=== PATIENT | female | born 1930 | race Caucasian/White ===

== ENCOUNTER → 2017-03-12 | Outpatient (CLI) | payer OTHER ==
[2017-03-12 13:20] LABS: COMPLETE YES; EOS % 1.4 %; IG% 0.6 %; LYMPH % 25.2 %; LYMPH ABS # 1.58 K/uL (1.2-3.4); MEAN CELL VOLUME 97.2 fL (80-100); MEAN CORPUSCULAR HEMOGLOBIN 31.2 pg (25-34); MEAN CORPUSCULAR HGB CONC 32.1 g/dl (32-36); MEAN PLATELET VOLUME 11.5 fL (7.4-10.4); NEUT % 68.8 %; PLATELET COUNT 433 K/uL (130-400); RED BLOOD COUNT 3.91 M/uL (4.2-5.4); WHITE BLOOD COUNT 6.26 K/uL (4.8-10.8)
[2017-03-12 13:59] LABS: ALT/SGPT 18 U/L (12-78); AST/SGOT 15 U/L (15-37); BLOOD UREA NITROGEN 30 mg/dl (7-18); BUN/CREATININE RATIO 17.5 (10-20); CALCIUM 8.6 mg/dl (8.5-10.1); CARBON DIOXIDE 22 mmol/L (21-32); CHLORIDE 111 mmol/L (98-107); GLUCOSE 181 mg/dl (70-99); SODIUM 144 mmol/L (136-145)
[2017-03-12 14:00] LABS: ESTIMATED AVERAGE GLUCOSE 143 mg/dl; HA1C FLAG Normal (Normal)
[2017-03-12 14:10] LABS: ALB/GLOB RATIO 1.2 (0.9-2); ALKALINE PHOSPHATASE 100 U/L (45-117); CHOLESTEROL 112 mg/dl (0-200); CHOLESTEROL/HDL RATIO 3.2; HDL CHOLESTEROL 35 mg/dl; TRIGLYCERIDES 139 mg/dl (0-150); VERY LOW DENSITY LIPOPROT CALC 28 mg/dl
== END | disposition home or self-care (01) ==
LOC: C.LABSPEC 12:17
PROVIDERS: ATTEND Internal Medicine
DX: E11.65 Type 2 diabetes mellitus with hyperglycemia (principal); E78.5 Hyperlipidemia, unspecified; R53.83 Other fatigue; N18.9 Chronic kidney disease, unspecified

== ENCOUNTER → 2017-07-23 | Outpatient (CLI) | payer OTHER ==
[2017-07-23 15:26] LABS: BASO % 0.3 %; BASO ABS # 0.02 K/uL (0-0.2); COMPLETE YES; EOS % 1.9 %; HEMATOCRIT 37.3 % (37-47); LYMPH ABS # 2.27 K/uL (1.2-3.4); MEAN CELL VOLUME 96.6 fL (80-100); MEAN CORPUSCULAR HEMOGLOBIN 30.8 pg (25-34); MEAN CORPUSCULAR HGB CONC 31.9 g/dl (32-36); MEAN PLATELET VOLUME 10.3 fL (7.4-10.4); MONO % 5.2 %; NEUT % 62.6 %; PLATELET COUNT 454 K/uL (130-400); RED BLOOD COUNT 3.86 M/uL (4.2-5.4); WHITE BLOOD COUNT 7.84 K/uL (4.8-10.8)
[2017-07-23 16:00] LABS: ALT/SGPT 20 U/L (12-78); BLOOD UREA NITROGEN 37 mg/dl (7-18); BUN/CREATININE RATIO 20.4 (10-20); CALCIUM 8.7 mg/dl (8.5-10.1); CARBON DIOXIDE 21 mmol/L (21-32); CHLORIDE 112 mmol/L (98-107); GLUCOSE 117 mg/dl (70-99); SODIUM 142 mmol/L (136-145)
[2017-07-23 16:03] LABS: ALB/GLOB RATIO 1.1 (0.9-2); ALKALINE PHOSPHATASE 83 U/L (45-117); AST/SGOT 22 U/L (15-37)
[2017-07-24 07:31] LABS: ESTIMATED AVERAGE GLUCOSE 131 mg/dl; HA1C FLAG Normal (Normal)
== END | disposition home or self-care (01) ==
LOC: C.LABSPEC 14:36
PROVIDERS: ATTEND Internal Medicine
DX: I12.9 Hypertensive chronic kidney disease with stage 1 through stage 4 chronic kidney disease, or unspecified chronic kidney disease (principal); E11.22 Type 2 diabetes mellitus with diabetic chronic kidney disease; N18.9 Chronic kidney disease, unspecified; R42 Dizziness and giddiness

== ENCOUNTER → 2017-11-26 | Outpatient (CLI) | payer OTHER ==
[2017-11-26 14:52] LABS: BASO % 0.4 %; BASO ABS # 0.03 K/uL (0-0.2); EOS % 2.7 %; EOS ABS # 0.19 K/uL (0-0.5); HEMATOCRIT 43.6 % (37-47); HEMOGLOBIN 13.6 g/dL (12.0-16.0); LYMPH ABS # 2.19 K/uL (1.2-3.4); MEAN CELL VOLUME 96.7 fL (80-100); MEAN CORPUSCULAR HEMOGLOBIN 30.2 pg (25-34); MEAN CORPUSCULAR HGB CONC 31.2 g/dl (32-36); MEAN PLATELET VOLUME 11.3 fL (7.4-10.4); MONO % 4.1 %; MONO ABS # 0.29 K/uL (0.11-0.59); NEUT % 60.8 %; NEUT ABS # 4.35 K/uL (1.4-6.5); PLATELET COUNT 389 K/uL (130-400); RED CELL DISTRIBUTION WIDTH CV 20.2 % (11.5-14.5); RED CELL DISTRIBUTION WIDTH SD 71.2 fL (36.4-46.3); WHITE BLOOD COUNT 7.15 K/uL (4.8-10.8)
[2017-11-26 15:01] LABS: ALBUMIN 3.3 gm/dl (3.4-5.0); ALT/SGPT 20 U/L (12-78); BLOOD UREA NITROGEN 44 mg/dl (7-18); CALCIUM 8.8 mg/dl (8.5-10.1); CARBON DIOXIDE 23 mmol/L (21-32); CHOLESTEROL 101 mg/dl (0-200); CREATININE 1.83 mg/dl (0.60-1.20); GLUCOSE 115 mg/dl (70-99); POTASSIUM 4.9 mmol/L (3.5-5.1); SODIUM 140 mmol/L (136-145)
[2017-11-26 15:11] LABS: ALKALINE PHOSPHATASE 80 U/L (45-117); AST/SGOT 17 U/L (15-37); LDL CHOLESTEROL CALCULATED 45 mg/dl; TOTAL PROTEIN 6.1 gm/dl (6.4-8.2)
[2017-11-26 15:18] LABS: LYMPH % 30.6 %
[2017-11-26 15:43] LABS: HEMOGLOBIN A1C 5.7 % (4.5-5.6)
== END | disposition home or self-care (01) ==
LOC: C.LABSPEC 14:39
PROVIDERS: ATTEND Internal Medicine
DX: R63.4 Abnormal weight loss (principal); R10.32 Left lower quadrant pain; E11.22 Type 2 diabetes mellitus with diabetic chronic kidney disease; N18.9 Chronic kidney disease, unspecified; E78.5 Hyperlipidemia, unspecified; N39.0 Urinary tract infection, site not specified

== ENCOUNTER → 2017-11-30 | Outpatient (CLI) | payer OTHER ==
--- NOTE | 2017-11-30 12:09 | DIAGNOSTIC IMAGING REPORT ---
ABD/PELVIS ORAL CONT ONLY CLINICAL HISTORY: 87 years-old Female presenting with left lower quadrant mass. TECHNIQUE: Multidetector CT of the abdomen and pelvis was performed after the administration of oral and intravenous contrast. IV contrast: None. A dose lowering technique was used consistent with the principles of ALARA (as low as reasonably achievable). COMPARISON: None. CT DOSE (mGy.cm): The estimated cumulative dose is 565.47 mGycm. FINDINGS: Rod Welder topogram: Unremarkable. Lung bases: Lungs and pleural spaces clear. Normal heart size. Mitral annular calcification. No pericardial or pleural effusion. Liver: Normal morphology. No liver lesion. Patent hepatic vasculature. Biliary: Pneumobilia. Mild intrahepatic bladder ductal prominence. The extrahepatic bile duct is not significantly dilated. A cystic duct remnant appears to form a fistulous connection with the duodenal bulb. Gallbladder surgically absent. Pancreas: Moderate parenchymal atrophy, which spares the pancreatic head. The pancreatic head is multilobular and cystic in appearance within limitations of noncontrast technique.. Spleen: Mildly enlarged measuring 13.9 cm in maximal sagittal dimension. Adrenal glands: Mild nodular thickening of the adrenal glands, nonspecific. Kidneys and ureters: Renal atrophy bilaterally. Multiple well-defined hypodense lesions, indeterminate but likely cysts. Expansion of renal sinus fat or urothelial thickening. Bilateral extrarenal pelvises. Nonobstructing calculi at the right lower pole and within the inferior portion of the right renal pelvis. Normal ureters. Bladder: Mild circumferential bladder wall thickening allowing for underdistention. Pelvic organs: Normal noncontrast appearance. Bowel: Diverticulosis throughout the colon. No pericolonic inflammatory change. The appendix contains feces. No bowel obstruction. Mild wall thickening of the pylorus. Peritoneal cavity: No free fluid or intraperitoneal gas. Lymph nodes: No gross lymphadenopathy allowing for noncontrast technique. Vasculature: Atherosclerosis of the normal caliber abdominal aorta. Abdominal wall: Fat-containing left inguinal hernia. Mild body wall edema. Mild inflammatory change at the vaginal introitus at the level of the Bartholin glands may be present. Musculoskeletal: Degenerative changes of the spine. Degenerative changes of the sacroiliac joints. Mild osteopenia. IMPRESSION: 1. No evidence of a left lower quadrant mass. 2. Findings of urothelial thickening and renal sinus lipomatosis suggest chronic inflammatory changes of the collecting system. This could be due to the presence of calculi as noted in the right kidney, infection, or reflux among other etiologies. 3. Nonobstructing right renal calculi. 4. Mild circumferential bladder wall thickening could suggest cystitis. Correlate with urinalysis. 5. Diverticulosis. 6. Possible inflammatory changes at the Bartholin's glands at the vaginal introitus. Correlate for point tenderness. 7. 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 This is of uncertain clinical significance. 8. Lobular possible cystic lesion at the pancreatic head most concerning for a side branch intraductal papillary mucinous neoplasm. This be better evaluated with contrast on CT or MR. 9. Mild splenomegaly. Electronically signed by: Oumar Addison M.D. 11/30/2017 12:08 PM Dictated Date/Time: 11/30/2017 11:54 AM
== END | disposition home or self-care (01) ==
LOC: C.CTS 11:37
PROVIDERS: ATTEND Internal Medicine
DX: R19.04 Left lower quadrant abdominal swelling, mass and lump (principal); R63.4 Abnormal weight loss; N20.0 Calculus of kidney; K57.90 Diverticulosis of intestine, part unspecified, without perforation or abscess without bleeding; R16.1 Splenomegaly, not elsewhere classified

== ENCOUNTER → 2017-12-10 | Outpatient (CLI) | payer OTHER ==
--- NOTE | 2017-12-11 15:20 | DIAGNOSTIC IMAGING REPORT ---
MRCP CLINICAL HISTORY: Pancreatic mass. COMPARISON STUDY: CT of the abdomen and pelvis November 30, 2017. TECHNIQUE: Utilizing a 1.5 Chantell magnet and dedicated coil, multiplanar, multiecho imaging of the upper abdomen was performed utilizing heavily T2 weighted pulsing sequences. No intravenous contrast was administered. FINDINGS: Note is made of a 4.4 x 4.2 cm multicystic lobulated pancreatic head mass which corresponds to the lesion shown on CT of December 12, 2015. There is no significant associated pancreatic ductal dilatation. 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 Pneumobilia within the common bile duct is better depicted on prior CT. There is mild dilatation of the common bile duct without significant intrahepatic biliary ductal dilatation. No common bile duct calculi are identified on this examination. No liver lesions are identified on unenhanced exam. Mild splenomegaly is noted. Adrenal glands are unremarkable. Innumerable T2 hyperintense bilateral renal lesions are suboptimally assessed on this exam but favor cyst. Marked bilateral renal atrophy is noted. There may be right-sided urothelial thickening which is depicted on prior CT. IMPRESSION: 1. 4.4 x 4.2 cm multicystic lobulated pancreatic head mass which corresponds to the lesion shown on prior CT. This likely reflects a serous cystadenoma, a benign lesion. 2. 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 3. Mild dilatation of the common bile duct and pneumobilia, better depicted on prior CT. No common bile duct calculi identified. Electronically signed by: Sridhar Escobar M.D. 12/11/2017 3:19 PM Dictated Date/Time: 12/10/2017 6:16 PM
== END | disposition home or self-care (01) ==
LOC: C.MRI 16:18
PROVIDERS: ATTEND Internal Medicine
DX: K86.9 Disease of pancreas, unspecified (principal)

== ENCOUNTER 2018-12-16 00:21 | Inpatient (IN) ==
[2018-12-16] MEDS ORDERED: fentaNYL citrate 100 MCG/2 ML VIAL ONE (00:33)
[2018-12-16 01:09] LABS: Basophils # (auto) 0.02 K/uL (0-0.2); Basophils % (auto) 0.2 %; Eosinophils # (auto) 0.09 K/uL (0-0.5); Eosinophils % (auto) 0.9 %; Hematocrit (blood only) 49.1 % (37-47); Hemoglobin 14.5 g/dL (12.0-16.0); Immature Granulocytes # (auto) 0.12 K/uL (0.00-0.02); Immature Granulocytes % (auto) 1.1 %; Lymphocytes # (auto) 1.47 K/uL (1.2-3.4); Mean Corpuscular Hgb Conc 29.5 g/dL (32-36); Mean Corpuscular Volume 84.2 fL (80-100); Monocytes # (auto) 0.55 K/uL (0.11-0.59); Monocytes % (auto) 5.2 %; Neutrophils # (auto) 8.23 K/uL (1.4-6.5); Neutrophils % (auto) 78.6 %; Platelet Count 159 K/uL (130-400); RDW Coefficient of Variation 21.7 % (11.5-14.5); RDW Standard Deviation 64.6 fL (36.4-46.3); Red Blood Count 5.83 M/uL (4.2-5.4); White Blood Count 10.48 K/uL (4.8-10.8)
[2018-12-16 01:20] LABS: INR 1.2 (0.9-1.1); Partial Thromboplastin Time 28.1 Seconds (21.0-31.0); Prothrombin Time 11.9 Seconds (9.0-12.0)
[2018-12-16 01:28] LABS: BUN Creatinine Ratio 26.6 (10-20); Calcium 7.7 mg/dl (8.5-10.1); Creatinine Clr Calc Pharmacy 25.2 ml/min; Est GFR (African American) 34.3; Est GFR (Non-African American) 29.6; Potassium 4.6 mmol/L (3.5-5.1)
[2018-12-16 01:41] LABS: Anisocytosis Present; Polychromasia 1+
[2018-12-16] MEDS ORDERED: SODIUM CHLORIDE 0.9% 500 ML IV ONE (02:00)
[2018-12-16 02:14] LABS: Appearance Urine Clear (Clear); Bacteria Urine Automated Negative (Negative); Bilirubin Urine Negative (Negative); Color Urine Yellow; Epithelial Cell Urine Auto >30 /lpf (0-5); Glucose Urine UA 2+ (Negative); Ketones Urine Negative (Negative); Leukocyte Esterase Urine 1+ (Negative); Nitrite Urine Negative (Negative); Protein Urine 3+ (Negative); Specific Gravity Urine 1.014 (1.000-1.030); Urobilinogen Urine Negative (Negative)
[2018-12-16] MEDS ORDERED: fentaNYL citrate 100 MCG/2 ML VIAL IV ONE ×2 (02:18→04:04)
[2018-12-16] MEDS: SODIUM CHLORIDE 0.9% 500 ML IV SCH ×2 (02:26→08:54)
[2018-12-16 02:31] LABS: Troponin I 0.015 ng/ml (0-0.045)
[2018-12-16 03:02] LABS: Magnesium 1.6 mg/dl (1.8-2.4)
--- NOTE | 2018-12-16 05:06 | History & Physical Report ---
Date of Service December 16, 2018 Assessment & Plan (1) Closed intertrochanteric fracture of left hip: NPO. IV fluids Fentanyl 50 mcg IV every 3 hours as needed severe pain. Acetaminophen 1000 mg IV every 8 hours as needed mild pain or temperature. Pantoprazole 40 mg IV daily. Zofran 4 mg IV every 6 hours as needed. Consult orthopedic surgery Present on Admission?: Yes (2) Hypertension: Hold carvedilol and lisinopril. Place on Lopressor 5 mg IV every 4 hours with hold parameters Present on Admission?: Yes (3) Acute hyperglycemia: Check hemoglobin A1c. Placed on Accu-Cheks every 6 hours, with NovoLog coverage per scale Present on Admission?: Yes (4) Insomnia: Continue mirtazapine 7.5 mg p.o. at bedtime Present on Admission?: Yes History of Present Illness Chief Complaint: The patient presents to the emergency department after a fall, complaining of left hip pain. Primary Care Provider: Divine Escobar MD Patient is an 88-year-old female who fell earlier in evening, developed immediate left hip pain, had an x-ray performed in the ED suggesting a closed intertrochanteric fracture of the left femur, and she is referred for evaluation for admission. Allergies Allergy/AdvReac Type Severity Reaction Status Date / Time No Known Allergies Allergy Verified 12/16/18 00:46 Home Medications Home Medications Medication Instructions Recorded Confirmed Type allopurinol 300 mg PO DAILY 09/24/18 12/16/18 History vitamin S39-shioh acid 1 tab PO DAILY 09/24/18 12/16/18 History carvedilol 12.5 mg PO BID 12/10/18 12/16/18 History magnesium oxide 400 mg PO DAILY 12/10/18 12/16/18 History cephalexin 250 mg PO BID 12/16/18 12/16/18 History cholecalciferol (vitamin D3) 1,000 unit PO DAILY 12/16/18 12/16/18 History [Vitamin D3] lisinopril 10 mg PO DAILY 12/16/18 12/16/18 History mirtazapine 7.5 mg PO HS 12/16/18 12/16/18 History Past Med/Surg History Medical History Kidney stones Hypertension UTI (urinary tract infection) Family History Other Family history non-contributory Social History Feels Safe at Home: Yes Smoking Status: Former smoker Preferred Language: [place] Review of Systems The patient denies chest pain, palpitations, shortness of breath, dyspnea on exertion, cough, sore throat, fevers, chills, sweats, weight change, fatigue, nausea, vomiting, diarrhea , constipation, abdominal pain, pelvic pain, blood in urine or stool, dysuria, urinary frequency or urgency, lightheadedness , dizziness, headache, memory loss, loss of consciousness, imbalance, focal or generalized weakness, numbness or tingling in arms, generalized arthralgias or myalgias, or night sweats. The review of systems is otherwise negative other than for that already noted above, and at least 10 systems have been reviewed. Physical Exam 2 Vital Signs (Past 24 Hours): Last Vital Signs Temp 37.2 C 12/16/18 00:31 Pulse 86 12/16/18 04:22 Resp 16 12/16/18 04:22 BP 197/86 H 12/16/18 04:22 Pulse Ox 95 12/16/18 04:22 Physical Exam: The patient is awake, alert and oriented 3, normocephalic and atraumatic, lying in bed and in no acute distress. HEENT--PERRL, EOMI, mucous membranes and oropharynx normal. Neck--supple. No JVD. No bruits. Thyroid normal, trachea midline, no adenopathy. Heart--normal S1 and S2. No murmurs, rubs or gallops. Lungs--clear bilaterally, no respiratory distress, no accessory muscle use. Abdomen--normal bowel sounds and soft. Nontender. Nondistended, no hernias or masses, no organomegaly. Extremities--no cyanosis or clubbing. No edema. There are good distal pulses b/ l. Dermatologic--normal skin turgor, normal color, no abnormal lymph nodes, no rash. Neurologic--cranial nerves II through XII grossly intact. Rheumatologic--pain over left hip and externally rotated. Psychiatric--normal affect. Results & Data Laboratory Results Laboratory Results WBC 10.48 K/uL (4.8-10.8) 12/16/18 01:02 RBC 5.83 M/uL (4.2-5.4) H 12/16/18 01:02 Hgb 14.5 g/dL (12.0-16.0) 12/16/18 01:02 Hct 49.1 % (37-47) H 12/16/18 01:02 MCV 84.2 fL (80-100) 12/16/18 01:02 MCH 24.9 pg (25-34) L 12/16/18 01:02 MCHC 29.5 g/dL (32-36) L 12/16/18 01:02 RDW Std Deviation 64.6 fL (36.4-46.3) H 12/16/18 01:02 RDW Coeff of Sarah 21.7 % (11.5-14.5) H 12/16/18 01:02 Plt Count 159 K/uL (130-400) 12/16/18 01:02 Immature Gran % (Auto) 1.1 % 12/16/18 01:02 Neut % (Auto) 78.6 % 12/16/18 01:02 Lymph % (Auto) 14.0 % 12/16/18 01:02 [place] % (Auto) 5.2 % 12/16/18 01:02 Eos % (Auto) 0.9 % 12/16/18 01:02 Baso % (Auto) 0.2 % 12/16/18 01:02 Immature Gran # (Auto) 0.12 K/uL (0.00-0.02) H 12/16/18 01:02 Neut # (Auto) 8.23 K/uL (1.4-6.5) H 12/16/18 01:02 Lymph # (Auto) 1.47 K/uL (1.2-3.4) 12/16/18 01:02 [place]once # (Auto) 0.55 K/uL (0.11-0.59) 12/16/18 01:02 Eos # (Auto) 0.09 K/uL (0-0.5) 12/16/18 01:02 Baso # (Auto) 0.02 K/uL (0-0.2) 12/16/18 01:02 Polychromasia 1+ 12/16/18 01:02 Anisocytosis Present 12/16/18 01:02 PT 11.9 Seconds (9.0-12.0) 12/16/18 01:02 INR 1.2 (0.9-1.1) H 12/16/18 01:02 APTT 28.1 Seconds (21.0-31.0) 12/16/18 01:02 PTT Ratio 1.0 12/16/18 01:02 Sodium 136 mmol/L (136-145) 12/16/18 01:02 Potassium 4.6 mmol/L (3.5-5.1) 12/16/18 01:02 Chloride 108 mmol/L (98-107) H 12/16/18 01:02 Carbon Dioxide 24 mmol/L (21-32) 12/16/18 01:02 Anion Gap 4.0 (3-11) 12/16/18 01:02 BUN 41 mg/dl (7-18) H 12/16/18 01:02 Creatinine 1.54 mg/dl (0.6-1.2) H 12/16/18 01:02 Est Cr Clr Drug Dosing 25.2 ml/min 12/16/18 01:02 Est GFR ( Amer) 34.3 12/16/18 01:02 Est GFR (Non-Af Amer) 29.6 12/16/18 01:02 BUN/Creatinine Ratio 26.6 (10-20) H 12/16/18 01:02 Glucose 344 mg/dl (70-99) H 12/16/18 01:02 Calcium 7.7 mg/dl (8.5-10.1) L 12/16/18 01:02 Magnesium 1.6 mg/dl (1.8-2.4) L 12/16/18 01:02 Troponin I 0.015 ng/ml (0-0.045) 12/16/18 01:02 Beta-Hydroxybutyric Acd 1.26 mg/dl (0.2-2.81) 12/16/18 01:02 Urine Color Yellow 12/16/18 02:04 Urine Appearance Clear (Clear) 12/16/18 02:04 Urine pH 6.0 (4.5-7.5) 12/16/18 02:04 Ur Specific [place] 1.014 (1.000-1.030) 12/16/18 02:04 Urine Protein 3+ (Negative) H 12/16/18 02:04 Urine Glucose (UA) 2+ (Negative) H 12/16/18 02:04 Urine Ketones Negative (Negative) 12/16/18 02:04 Urine Blood Trace (Negative) H 12/16/18 02:04 Urine Nitrite Negative (Negative) 12/16/18 02:04 Urine Bilirubin Negative (Negative) 12/16/18 02:04 Urine Urobilinogen Negative (Negative) 12/16/18 02:04 Ur Leukocyte Esterase 1+ (Negative) H 12/16/18 02:04 Urine WBC (Auto) 10-30 /hpf (0-5) H 12/16/18 02:04 Urine RBC (Auto) 0-4 /hpf (0-4) 12/16/18 02:04 U Hyaline Cast (Auto) 1-5 /lpf (0-5) 12/16/18 02:04 U Epithel Cells (Auto) >30 /lpf (0-5) H 12/16/18 02:04 Urine Bacteria (Auto) Negative (Negative) 12/16/18 02:04 Ur Renal Epithelial Cell Not Reportable 12/16/18 02:04 Blood Type A Positive 12/16/18 01:02 Antibody Screen NEGATIVE 12/16/18 01:02 Medications Administered Home Medications Medication Instructions Recorded Confirmed allopurinol 300 mg PO DAILY 09/24/18 12/16/18 vitamin Q22-zagkn acid 1 tab PO DAILY 09/24/18 12/16/18 carvedilol 12.5 mg PO BID 12/10/18 12/16/18 magnesium oxide 400 mg PO DAILY 12/10/18 12/16/18 cephalexin 250 mg PO BID 12/16/18 12/16/18 cholecalciferol (vitamin D3) 1,000 unit PO DAILY 12/16/18 12/16/18 [Vitamin D3] lisinopril 10 mg PO DAILY 12/16/18 12/16/18 mirtazapine 7.5 mg PO HS 12/16/18 12/16/18 Code Status & VTE Plan Code Status full code VTE Prophylaxis Plan VTE Prophylaxis will be ordered: Yes _ (1) Closed intertrochanteric fracture of left hip Encounter type: initial encounter Fracture alignment: nondisplaced Fracture healing: Qualified Code(s): S72.145A - Nondisplaced intertrochanteric fracture of left femur, initial encounter for closed fracture (2) Hypertension Hypertension type: essential hypertension Qualified Code(s): I10 - Essential (primary) hypertension
--- NOTE | 2018-12-16 06:35 | CT Scan Report ---
CT head/brain wo con CLINICAL HISTORY: Head pain status post trauma COMPARISON STUDY: 09/24/2018 TECHNIQUE: Axial CT of the brain is performed from the vertex to the skull base. IV contrast was not administered for this examination. A dose lowering technique was utilized adhering to the principles of ALARA. CT DOSE: FINDINGS: There is an acute left convexity subdural hematoma measuring 7 mm in maximal thickness. There is no s ignificant midline shift. There is no CT evidence of acute cortical infarction. There is no subarachn oid or intraventricular hemorrhage. There are patchy white matter hypodensities likely on a small vessel basis. There is no evidence of pathologic ventricular dilatation. No calvarial fractures are visualized. There is no evidence of calvarial fracture. IMPRESSION: 1. Acute 7 mm left convexity subdural hematoma. 2. This report was called to the emergency room due to a discrepancy with the preliminary report Electronically signed by: Fabiano Wang M.D. 12/16/2018 6:33 AM
--- NOTE | 2018-12-16 06:41 | CT Scan Report ---
CT OF THE CERVICAL SPINE CLINICAL HISTORY: Neck pain status post trauma COMPARISON STUDY: No previous studies for comparison. CT DOSE: 886.07 mGy.cm TECHNIQUE: CT scan of the cervical spine was performed from the skull base to the thoracic inlet. Dena ges are reviewed in the axial, sagittal, and coronal planes. IV contrast was not administered for thi s examination. A dose lowering technique was utilized adhering to the principles of ALARA. FINDINGS: There is a multinodular thyroid gland. There is no apical pneumothorax. There is a small right mastoi d effusion. The prevertebral soft tissues are normal. No fractures or subluxations are visualized. There are multilevel degenerative changes IMPRESSION: 1. No evidence of acute fracture or traumatic subluxation 2. Small right mastoid effusion 3. Multinodular thyroid gland Electronically signed by: Fabiano Wang M.D. 12/16/2018 6:39 AM
--- NOTE | 2018-12-16 06:48 | XRay Report ---
XR hip LT 2-3V w pelvis CLINICAL HISTORY: Left hip pain status post trauma COMPARISON: None. DISCUSSION: There is an intertrochanteric left hip fracture. There is no dislocation. Degenerative ch anges are present within the lower lumbar spine. There is mild fecal retention. IMPRESSION: Acute intertrochanteric left hip fracture. Electronically signed by: Fabiano Wang M.D. 12/16/2018 6:47 AM
[2018-12-16] MEDS ORDERED: DEXTROSE 50% 50 ML SYRINGE IV PRN (07:09)
[2018-12-16] MEDS ORDERED: ACETAMINOPHEN 1000 MG/100 ML IV IV PRN (07:09)
[2018-12-16] MEDS ORDERED: ONDANSETRON INJ 2 MG/ML 2 ML VIAL IV PRN (07:09)
[2018-12-16] MEDS ORDERED: GLUCOSE 40% GEL 15 GM TUBE PO PRN (07:09)
[2018-12-16] MEDS ORDERED: fentaNYL citrate 100 MCG/2 ML VIAL IV PRN (07:09)
[2018-12-16] MEDS ORDERED: GLUCAGON FOR INJ 1 MG VIAL SQ PRN (07:09)
[2018-12-16] MEDS ORDERED: SODIUM CHLORIDE 0.9% 1000ML 1,000 ML IV SCH (07:09)
[2018-12-16] MEDS ORDERED: CARBOHYDRATES FOR HYPOGLYCEMIA PO PRN (07:09)
[2018-12-16] MEDS ORDERED: GLUCOSE 10 TABS/TUBE PO PRN (07:09)
--- NOTE | 2018-12-16 07:16 | Emergency Department Note ---
Entered by Dustin Cruz acting as a scribe for Ana Lilia Miller DO History of Present Illness General Chief complaint: Fall Time Seen by Provider: 12/16/18 00:44 Source: patient History of Present Illness Provider complaint: Fall Onset (ago): minute(s) (Just prior to arrival) Location: head Radiation: non-radiation Pain Consistency: + other (Episodic) Maximum Pain Intensity: 10 Relieved By: + none Exacerbated By: + none and + movement Associated symptoms: + other (No loss of conscious, left hip pain, no abdominal , neck or back pain) The patient is a 88 year old female who presents to the Emergency Room via EMS after falling off of the side of the toilet, per EMS. Per the patient, she fell while ambulating to the toilet. When she fell, she hit the left side of her head on the sink and also hit her left hip but she did not lose consciousness. She has left hip pain with movement, but she denies any neck, back or abdominal pain. Upon arrival the patient was incontinent with stool. The patient also reports not feeling well the past couple of days and she did fall earlier in the week. She was seen here recently in the emergency department for weakness. She also notes she has healing shingles on the medial aspect of her right thigh. Home Medications Home Medications Medication Instructions Recorded Confirmed Type allopurinol 300 mg PO DAILY 09/24/18 12/16/18 History vitamin [id number] acid 1 tab PO DAILY 09/24/18 12/16/18 History magnesium oxide 400 mg PO DAILY 12/10/18 12/16/18 History cephalexin 250 mg PO BID 12/16/18 12/16/18 History cholecalciferol (vitamin D3) 1,000 unit PO DAILY 12/16/18 12/16/18 History [Vitamin D3] mirtazapine 7.5 mg PO HS 12/16/18 12/16/18 History Allergies Allergy/AdvReac Type Severity Reaction Status Date / Time No Known Allergies Allergy Verified 12/16/18 00:46 Past Med/Surg History Medical History Kidney stones Hypertension UTI (urinary tract infection) Family History Other Family history non-contributory Social History Current Living Situation: Family Current Living Situation Comment: lives w son Other Information That Helps Us Care for You: No Feels Safe at Home: Yes Safety Concerns: Feels Safe At This Time Smoking Status: Never smoker Hx Alcohol Use: No Hx Substance Use: No Beliefs That Will Affect Care: None Preferred Language: Trinidadian Review of Systems See HPI for pertinent positives & negatives. and A total of 10 systems reviewed and were otherwise negative Physical Exam Vital Signs Vital Signs - 24 hr 12/16/18 00:31 12/16/18 02:00 12/16/18 02:26 Temperature 37.2 C Temperature Source Oral Sepsis Recent Fever Within 48 Hours No Sepsis Action Taken by Nursing No Action Required Pulse Rate 68 Pulse Rate [Right Finger] 65 73 Pulse Rate from SpO2 Sensor Pulse Rhythm Regular Pulse Rhythm [Right Finger] Regular Pulse Strength Normal Pulse Strength [Right Finger] Normal Respiratory Rate 18 16 19 Respiratory Effort / Characteristics Non-Labored Non-Labored Non-Labored Respiratory Depth Normal Normal Normal Respiratory Pattern Regular Regular Regular Blood Pressure 208/80 H Blood Pressure [Left Arm] 176/89 H 176/75 H Blood Pressure Mean 122 Blood Pressure Mean [Left Arm] 118 108 Blood Pressure Position Lying Blood Pressure Position [Left Arm] Lying Pulse Oximetry 97 96 96 Oxygen Delivery Method Room Air Room Air Room Air 12/16/18 02:30 12/16/18 02:40 12/16/18 02:50 Temperature Temperature Source Sepsis Recent Fever Within 48 Hours Sepsis Action Taken by Nursing Pulse Rate 63 78 73 Pulse Rate [Right Finger] Pulse Rate from SpO2 Sensor 68 80 72 Pulse Rhythm Pulse Rhythm [Right Finger] Pulse Strength Pulse Strength [Right Finger] Respiratory Rate 18 18 18 Respiratory Effort / Characteristics Respiratory Depth Respiratory Pattern Blood Pressure Blood Pressure [Left Arm] Blood Pressure Mean Blood Pressure Mean [Left Arm] Blood Pressure Position Blood Pressure Position [Left Arm] Pulse Oximetry 96 91 93 Oxygen Delivery Method 12/16/18 03:08 12/16/18 03:09 12/16/18 03:10 Temperature Temperature Source Sepsis Recent Fever Within 48 Hours Sepsis Action Taken by Nursing Pulse Rate 74 75 69 Pulse Rate [Right Finger] Pulse Rate from SpO2 Sensor 79 66 Pulse Rhythm Pulse Rhythm [Right Finger] Pulse Strength Pulse Strength [Right Finger] Respiratory Rate 16 18 14 Respiratory Effort / Characteristics Respiratory Depth Respiratory Pattern Blood Pressure 209/83 H 194/82 H Blood Pressure [Left Arm] Blood Pressure Mean 125 119 Blood Pressure Mean [Left Arm] Blood Pressure Position Blood Pressure Position [Left Arm] Pulse Oximetry 96 95 Oxygen Delivery Method 12/16/18 03:11 12/16/18 03:20 12/16/18 03:21 Temperature Temperature Source Sepsis Recent Fever Within 48 Hours Sepsis Action Taken by Nursing Pulse Rate 67 65 70 Pulse Rate [Right Finger] 67 Pulse Rate from SpO2 Sensor 62 65 70 Pulse Rhythm Pulse Rhythm [Right Finger] Pulse Strength Pulse Strength [Right Finger] Respiratory Rate 15 14 19 Respiratory Effort / Characteristics Respiratory Depth Respiratory Pattern Blood Pressure 196/74 H Blood Pressure [Left Arm] 194/82 H Blood Pressure Mean 114 Blood Pressure Mean [Left Arm] 119 Blood Pressure Position Blood Pressure Position [Left Arm] Pulse Oximetry 96 95 94 Oxygen Delivery Method 12/16/18 03:22 12/16/18 03:30 12/16/18 03:40 Temperature Temperature Source Sepsis Recent Fever Within 48 Hours Sepsis Action Taken by Nursing Pulse Rate 81 74 Pulse Rate [Right Finger] 67 Pulse Rate from SpO2 Sensor 82 77 Pulse Rhythm Pulse Rhythm [Right Finger] Regular Pulse Strength Pulse Strength [Right Finger] Normal Respiratory Rate 16 18 18 Respiratory Effort / Characteristics Non-Labored Respiratory Depth Normal Respiratory Pattern Regular Blood Pressure Blood Pressure [Left Arm] 196/74 H Blood Pressure Mean Blood Pressure Mean [Left Arm] 114 Blood Pressure Position Blood Pressure Position [Left Arm] Lying Pulse Oximetry 95 94 96 Oxygen Delivery Method Room Air 12/16/18 03:50 12/16/18 03:51 12/16/18 04:00 Temperature Temperature Source Sepsis Recent Fever Within 48 Hours Sepsis Action Taken by Nursing Pulse Rate 79 72 88 Pulse Rate [Right Finger] Pulse Rate from SpO2 Sensor 75 73 85 Pulse Rhythm Pulse Rhythm [Right Finger] Pulse Strength Pulse Strength [Right Finger] Respiratory Rate 17 19 23 Respiratory Effort / Characteristics Respiratory Depth Respiratory Pattern Blood Pressure 197/86 H Blood Pressure [Left Arm] Blood Pressure Mean 123 Blood Pressure Mean [Left Arm] Blood Pressure Position Blood Pressure Position [Left Arm] Pulse Oximetry 96 95 94 Oxygen Delivery Method 12/16/18 04:10 12/16/18 04:20 12/16/18 04:22 Temperature Temperature Source Sepsis Recent Fever Within 48 Hours Sepsis Action Taken by Nursing Pulse Rate 86 73 Pulse Rate [Right Finger] 86 Pulse Rate from SpO2 Sensor 85 75 Pulse Rhythm Pulse Rhythm [Right Finger] Regular Pulse Strength Pulse Strength [Right Finger] Normal Respiratory Rate 19 16 16 Respiratory Effort / Characteristics Non-Labored Respiratory Depth Normal Respiratory Pattern Regular Blood Pressure Blood Pressure [Left Arm] 197/86 H Blood Pressure Mean Blood Pressure Mean [Left Arm] 123 Blood Pressure Position Blood Pressure Position [Left Arm] Lying Pulse Oximetry 94 95 95 Oxygen Delivery Method Room Air 12/16/18 04:30 12/16/18 04:40 12/16/18 04:50 Temperature Temperature Source Sepsis Recent Fever Within 48 Hours Sepsis Action Taken by Nursing Pulse Rate 84 71 71 Pulse Rate [Right Finger] Pulse Rate from SpO2 Sensor 83 70 70 Pulse Rhythm Pulse Rhythm [Right Finger] Pulse Strength Pulse Strength [Right Finger] Respiratory Rate 19 15 16 Respiratory Effort / Characteristics Respiratory Depth Respiratory Pattern Blood Pressure Blood Pressure [Left Arm] Blood Pressure Mean Blood Pressure Mean [Left Arm] Blood Pressure Position Blood Pressure Position [Left Arm] Pulse Oximetry 94 94 93 Oxygen Delivery Method 12/16/18 05:00 12/16/18 05:10 12/16/18 05:20 Temperature Temperature Source Sepsis Recent Fever Within 48 Hours Sepsis Action Taken by Nursing Pulse Rate 73 72 67 Pulse Rate [Right Finger] Pulse Rate from SpO2 Sensor 72 71 71 Pulse Rhythm Pulse Rhythm [Right Finger] Pulse Strength Pulse Strength [Right Finger] Respiratory Rate 16 15 16 Respiratory Effort / Characteristics Respiratory Depth Respiratory Pattern Blood Pressure Blood Pressure [Left Arm] Blood Pressure Mean Blood Pressure Mean [Left Arm] Blood Pressure Position Blood Pressure Position [Left Arm] Pulse Oximetry 94 93 94 Oxygen Delivery Method 12/16/18 05:21 12/16/18 05:30 12/16/18 05:40 Temperature Temperature Source Sepsis Recent Fever Within 48 Hours Sepsis Action Taken by Nursing Pulse Rate 67 66 Pulse Rate [Right Finger] 83 Pulse Rate from SpO2 Sensor 69 68 Pulse Rhythm Pulse Rhythm [Right Finger] Regular Pulse Strength Pulse Strength [Right Finger] Normal Respiratory Rate 16 15 16 Respiratory Effort / Characteristics Non-Labored Respiratory Depth Normal Respiratory Pattern Regular Blood Pressure Blood Pressure [Left Arm] 197/86 H Blood Pressure Mean Blood Pressure Mean [Left Arm] 123 Blood Pressure Position Blood Pressure Position [Left Arm] Lying Pulse Oximetry 96 94 93 Oxygen Delivery Method Room Air 12/16/18 05:50 12/16/18 05:51 12/16/18 06:00 Temperature Temperature Source Sepsis Recent Fever Within 48 Hours Sepsis Action Taken by Nursing Pulse Rate 69 75 70 Pulse Rate [Right Finger] Pulse Rate from SpO2 Sensor 69 74 71 Pulse Rhythm Pulse Rhythm [Right Finger] Pulse Strength Pulse Strength [Right Finger] Respiratory Rate 17 16 15 Respiratory Effort / Characteristics Respiratory Depth Respiratory Pattern Blood Pressure 192/74 H Blood Pressure [Left Arm] Blood Pressure Mean 113 Blood Pressure Mean [Left Arm] Blood Pressure Position Blood Pressure Position [Left Arm] Pulse Oximetry 94 93 94 Oxygen Delivery Method 12/16/18 06:10 12/16/18 06:17 12/16/18 06:20 Temperature Temperature Source Sepsis Recent Fever Within 48 Hours Sepsis Action Taken by Nursing Pulse Rate 68 73 73 Pulse Rate [Right Finger] Pulse Rate from SpO2 Sensor 66 73 Pulse Rhythm Pulse Rhythm [Right Finger] Pulse Strength Pulse Strength [Right Finger] Respiratory Rate 18 16 19 Respiratory Effort / Characteristics Respiratory Depth Respiratory Pattern Blood Pressure 194/73 H Blood Pressure [Left Arm] Blood Pressure Mean Blood Pressure Mean [Left Arm] Blood Pressure Position Blood Pressure Position [Left Arm] Pulse Oximetry 96 96 95 Oxygen Delivery Method Room Air 12/16/18 06:40 12/16/18 06:50 12/16/18 06:56 Temperature 37.2 C Temperature Source Oral Sepsis Recent Fever Within 48 Hours Sepsis Action Taken by Nursing Pulse Rate 86 79 Pulse Rate [Right Finger] 80 Pulse Rate from SpO2 Sensor Pulse Rhythm Pulse Rhythm [Right Finger] Pulse Strength Pulse Strength [Right Finger] Normal Respiratory Rate 18 Respiratory Effort / Characteristics Respiratory Depth Normal Respiratory Pattern Blood Pressure Blood Pressure [Left Arm] 210/73 H Blood Pressure Mean Blood Pressure Mean [Left Arm] 118 Blood Pressure Position Blood Pressure Position [Left Arm] Lying Pulse Oximetry 95 Oxygen Delivery Method Room Air 12/16/18 07:00 12/16/18 07:10 12/16/18 07:20 Temperature Temperature Source Sepsis Recent Fever Within 48 Hours Sepsis Action Taken by Nursing Pulse Rate 87 77 83 Pulse Rate [Right Finger] Pulse Rate from SpO2 Sensor Pulse Rhythm Pulse Rhythm [Right Finger] Pulse Strength Pulse Strength [Right Finger] Respiratory Rate Respiratory Effort / Characteristics Respiratory Depth Respiratory Pattern Blood Pressure Blood Pressure [Left Arm] Blood Pressure Mean Blood Pressure Mean [Left Arm] Blood Pressure Position Blood Pressure Position [Left Arm] Pulse Oximetry Oxygen Delivery Method 12/16/18 07:30 12/16/18 07:45 12/16/18 07:50 Temperature Temperature Source Sepsis Recent Fever Within 48 Hours Sepsis Action Taken by Nursing Pulse Rate 77 86 89 Pulse Rate [Right Finger] Pulse Rate from SpO2 Sensor 87 88 Pulse Rhythm Pulse Rhythm [Right Finger] Pulse Strength Pulse Strength [Right Finger] Respiratory Rate 26 H 21 Respiratory Effort / Characteristics Respiratory Depth Respiratory Pattern Blood Pressure 217/113 H Blood Pressure [Left Arm] Blood Pressure Mean 147 Blood Pressure Mean [Left Arm] Blood Pressure Position Blood Pressure Position [Left Arm] Pulse Oximetry 96 94 Oxygen Delivery Method 12/16/18 07:54 12/16/18 08:00 12/16/18 08:01 Temperature Temperature Source Sepsis Recent Fever Within 48 Hours Sepsis Action Taken by Nursing Pulse Rate 86 68 76 Pulse Rate [Right Finger] Pulse Rate from SpO2 Sensor 71 73 Pulse Rhythm Pulse Rhythm [Right Finger] Pulse Strength Pulse Strength [Right Finger] Respiratory Rate 18 18 Respiratory Effort / Characteristics Respiratory Depth Respiratory Pattern Blood Pressure 181/101 H Blood Pressure [Left Arm] Blood Pressure Mean 127 Blood Pressure Mean [Left Arm] Blood Pressure Position Blood Pressure Position [Left Arm] Pulse Oximetry 93 94 Oxygen Delivery Method 12/16/18 08:14 12/16/18 08:17 12/16/18 08:31 Temperature 36.7 C Temperature Source Oral Sepsis Recent Fever Within 48 Hours Sepsis Action Taken by Nursing Pulse Rate 66 65 Pulse Rate [Right Finger] 66 Pulse Rate from SpO2 Sensor 67 74 Pulse Rhythm Pulse Rhythm [Right Finger] Regular Pulse Strength Pulse Strength [Right Finger] Normal Respiratory Rate 20 16 23 Respiratory Effort / Characteristics Non-Labored Spontaneous Normal for Patient Respiratory Depth Normal Respiratory Pattern Regular Blood Pressure 202/85 H 184/103 H Blood Pressure [Left Arm] 202/85 H Blood Pressure Mean 124 130 Blood Pressure Mean [Left Arm] 124 Blood Pressure Position Blood Pressure Position [Left Arm] Lying Pulse Oximetry 93 98 92 Oxygen Delivery Method Room Air 12/16/18 08:52 12/16/18 09:01 12/16/18 09:55 Temperature 36.7 C 36.7 C Temperature Source Oral Sepsis Recent Fever Within 48 Hours Sepsis Action Taken by Nursing Pulse Rate 85 66 Pulse Rate [Right Finger] 64 Pulse Rate from SpO2 Sensor 70 Pulse Rhythm Pulse Rhythm [Right Finger] Regular Pulse Strength Pulse Strength [Right Finger] Normal Respiratory Rate 22 18 Respiratory Effort / Characteristics Non-Labored Spontaneous Normal for Patient Respiratory Depth Normal Respiratory Pattern Regular Blood Pressure 185/114 H 187/91 H Blood Pressure [Left Arm] 175/97 H Blood Pressure Mean 123 Blood Pressure Mean [Left Arm] 123 Blood Pressure Position Blood Pressure Position [Left Arm] Lying Pulse Oximetry 97 94 Oxygen Delivery Method Room Air Room Air 12/16/18 10:52 12/16/18 11:03 12/16/18 12:43 Temperature 36.8 C Temperature Source Oral Sepsis Recent Fever Within 48 Hours Sepsis Action Taken by Nursing Pulse Rate Pulse Rate [Right Finger] 69 70 75 Pulse Rate from SpO2 Sensor Pulse Rhythm Pulse Rhythm [Right Finger] Regular Regular Regular Pulse Strength Pulse Strength [Right Finger] Normal Normal Normal Respiratory Rate 18 16 18 Respiratory Effort / Characteristics Non-Labored Spontaneous Normal for Patient Non-Labored Spontaneous Normal for Patient Non-Labored Spontaneous Normal for Patient Respiratory Depth Normal Normal Normal Respiratory Pattern Regular Regular Regular Blood Pressure Blood Pressure [Left Arm] 184/78 H 151/51 H 136/52 L Blood Pressure Mean Blood Pressure Mean [Left Arm] 113 84 80 Blood Pressure Position Blood Pressure Position [Left Arm] Lying Lying Lying Pulse Oximetry 95 94 94 Oxygen Delivery Method Room Air Room Air Room Air 12/16/18 12:49 Temperature 36.8 C Temperature Source Sepsis Recent Fever Within 48 Hours Sepsis Action Taken by Nursing Pulse Rate Pulse Rate [Right Finger] 75 Pulse Rate from SpO2 Sensor Pulse Rhythm Pulse Rhythm [Right Finger] Pulse Strength Pulse Strength [Right Finger] Respiratory Rate 18 Respiratory Effort / Characteristics Respiratory Depth Respiratory Pattern Blood Pressure Blood Pressure [Left Arm] 136/52 L Blood Pressure Mean Blood Pressure Mean [Left Arm] Blood Pressure Position Blood Pressure Position [Left Arm] Pulse Oximetry 94 Oxygen Delivery Method HEENT: Head - normocephalic, large cephalohematoma over the left anabaptism Pupils are equal, round, and reactive to light. Extraocular eye muscles are intact, and sclera are anicteric. Nose - moist nasal mucosa without discharge. Mouth - moist buccal mucosa. Oropharynx is nonerythematous and there is no tonsillar exudate or edema noted. Neck: Supple; no pain to palpation over the posterior cervical spine Heart: Regular rate and rhythm. There is a normal S1 and S2 with no murmurs, clicks, or gallops appreciated. Lungs: Clear to auscultation bilaterally with no wheezes, rales, or rhonchi. Abdomen: Soft, completely nontender, nondistended, with good bowel sounds. There are no palpable pulsatile masses or hepatosplenomegaly. There is no guarding, rigidity, or rebound noted. Extremities: No evidence of cyanosis, clubbing, or edema. There are easily palpable peripheral pulses. Pain to palpation over the left hip and inguinal canal. Her left leg is slightly shorter when compared to her right leg. There is no internal or external rotation Skin: warm and dry with good turgor. Dried vesicles on the medial aspect of the right thigh. Neuro: The patient was awake and alert. She was oriented to person and place. She was easily able to follow commands. Course 0047: Past medical records reviewed. The patient was evaluated in room A11, and a complete history and physical examination were performed. Laboratory studies were drawn as above. A Saleh catheter was placed by nursing staff. The patient declined wanting anything for pain initially. She had an x-ray of the left hip and pelvis. There was no obvious fracture. A chest x-ray was ordered in preparation for the OR but the patient declined stating that she had one just a couple of days ago here in the ER. This was unremarkable at that time. The patient had a twelve-lead EKG performed 0200: The patient was kept n.p.o. I ordered Sodium Chloride 500mls @ 999mls/hr IV and Sodium Chloride 500mls @ 125mls/hr IV 0213: I updated the patient and family on the situation and plan. The patient will go for CT scan of the brain and cervical spine. 0218: I ordered Fentanyl Citrate 50mcg IV. 0250: I spoke to the family again and explained the situation with regards to the delay getting the CT scan of the brain and cervical spine. The patient was comfortable at that time and her neurological status was intact. 0320: Dr. Guadalupe - [facility] Hospitalist was notified about the patient. 0400: I reevaluated the patient and she is having more pain. I also updated them on the results of the CT scan and plan. 0404: I ordered additional fentanyl Citrate 50mcg IV 0630: The patient was admitted to the hospital. Orthopedics was consulted. The in house radiologist called me to inform me he identified a small subdural hematoma on the patient's CT of the head that was not identified by stat rad overnight. The charge nurse is informing the admitting physician. Administered Medications Discontinued Medications Fentanyl Citrate (Fentanyl Citrate) 50 mcg IV NOW ONE Stop: 12/16/18 02:19 Last Admin: 12/16/18 02:25 Dose: 50 mcg Fentanyl Citrate (Fentanyl Citrate) 50 mcg IV NOW ONE Stop: 12/16/18 04:05 Last Admin: 12/16/18 04:17 Dose: 50 mcg Fentanyl Citrate (Fentanyl Citrate) 50 mcg IV Q3H PRN PRN Reason: Severe Pain Stop: 12/30/18 07:08 Last Admin: 12/16/18 10:14 Dose: 50 mcg Fentanyl Citrate (Fentanyl Citrate) Confirm Administered Dose 100 mcg .ROUTE .STK-MED ONE Stop: 12/16/18 00:34 Last Admin: 12/16/18 10:13 Dose: Not Given Hydralazine HCl (Hydralazine Hcl) Confirm Administered Dose 20 mg .ROUTE .STK- MED ONE Stop: 12/16/18 10:48 Last Increment: 12/16/18 11:18 Dose: 10 mg Hydralazine HCl (Hydralazine Hcl) 10 mg IV NOW STA Stop: 12/16/18 10:51 Last Admin: 12/16/18 10:52 Dose: 10 mg Sodium Chloride (Nss) 500 mls @ 999 mls/hr IV .Q31M ONE Stop: 12/16/18 02:30 Last Infusion: 12/16/18 08:58 Dose: 0 mls/hr Infusion: 12/16/18 04:08 Dose: Admin: 12/16/18 02:26 Dose: 999 mls/hr Sodium Chloride (Nss) 500 mls @ 125 mls/hr IV .Q4H [facility] Stop: 01/15/19 01:59 Last Admin: 12/16/18 08:54 Dose: Not Given Infusion: 12/16/18 08:54 Dose: 0 mls/hr Admin: 12/16/18 02:26 Dose: 125 mls/hr Pantoprazole Sodium 40 mg/ (Syringe) 10 mls @ 5 mls/min IV DAILY@1100 [facility] Stop: 01/15/19 10:59 Last Admin: 12/16/18 11:19 Dose: 5 mls/min Sodium Chloride (Nss 1000ml) 1,000 mls @ 80 mls/hr IV .[id number] [facility] Stop: 01/15/19 07:08 Last Admin: 12/16/18 08:56 Dose: 80 mls/hr Magnesium Sulfate/Dextrose (Magnesium Sulfate / D5w) 1 gm in 100 mls @ 100 mls/ hr IV Q1H [facility] Stop: 12/16/18 11:29 Last Infusion: 12/16/18 12:16 Dose: 0 mls/hr Admin: 12/16/18 11:18 Dose: 100 mls/hr Infusion: 12/16/18 11:18 Dose: 100 mls/hr Admin: 12/16/18 10:37 Dose: 100 mls/hr Ceftriaxone Sodium 1,000 mg/ (Sodium Chloride) 50 mls @ 100 mls/hr IV Q24H [place] ; Protocol Stop: 12/26/18 10:59 Last Infusion: 12/16/18 11:46 Dose: 0 mls/hr Admin: 12/16/18 11:17 Dose: 100 mls/hr Insulin Aspart (Novolog Flexpen) 0 units SC ACHS [facility] Stop: 01/15/19 07:29 Last Admin: 12/16/18 12:40 Dose: 5 units Admin: 12/16/18 09:11 Dose: 5 units Metoprolol Tartrate (Lopressor) 5 mg IV Q4 [facility] Stop: 01/15/19 07:59 Last Admin: 12/16/18 12:48 Dose: Not Given Admin: 12/16/18 08:52 Dose: 5 mg Metoprolol Tartrate (Lopressor) Confirm Administered Dose 5 mg IV .STK-MED ONE Stop: 12/16/18 07:58 Last Admin: 12/16/18 08:56 Dose: Not Given Medical Decision Making Differential Diagnosis The patient is an 88 year old female who presents to the ED via EMS after falling off of her toilet just prior to arrival, per EMS. Differential diagnosis includes skull fracture, close head injury, intracranial trauma, C- spine injury, pelvis fracture, and hip fracture. Medical Records Attestation: I reviewed the patient's medical records. Home Medications Current Medication List: was personally reviewed by me Laboratory Data Attestation: I reviewed the patient's lab results. Result diagrams: 12/16/18 01:02 12/16/18 01:02 Lab Results 12/16/18 12/16/18 12/16/18 Range/Units 01:02 01:02 01:02 WBC 10.48 (4.8-10.8) K/uL RBC 5.83 H (4.2-5.4) M/uL Hgb 14.5 (12.0-16.0) g/dL Hct 49.1 H (37-47) % MCV 84.2 (80-100) fL MCH 24.9 L (25-34) pg MCHC 29.5 L (32-36) g/dL RDW Std Deviation 64.6 H (36.4-46.3) fL RDW Coeff of Sarah 21.7 H (11.5-14.5) % Plt Count 159 (130-400) K/uL Immature Gran % (Auto) 1.1 % Neut % (Auto) 78.6 % Lymph % (Auto) 14.0 % [place] % (Auto) 5.2 % Eos % (Auto) 0.9 % Baso % (Auto) 0.2 % Immature Gran # (Auto) 0.12 H (0.00-0.02) K/uL Neut # (Auto) 8.23 H (1.4-6.5) K/uL Lymph # (Auto) 1.47 (1.2-3.4) K/uL [place] # (Auto) 0.55 (0.11-0.59) K/uL Eos # (Auto) 0.09 (0-0.5) K/uL Baso # (Auto) 0.02 (0-0.2) K/uL Polychromasia 1+ Anisocytosis Present PT 11.9 (9.0-12.0) Seconds INR 1.2 H (0.9-1.1) APTT 28.1 (21.0-31.0) Seconds PTT Ratio 1.0 Sodium 136 (136-145) mmol/L Potassium 4.6 (3.5-5.1) mmol/L Chloride 108 H (98-107) mmol/L Carbon Dioxide 24 (21-32) mmol/L Anion Gap 4.0 (3-11) BUN 41 H (7-18) mg/dl Creatinine 1.54 H (0.6-1.2) mg/dl Est Cr Clr Drug Dosing 25.2 ml/min Est GFR ( Amer) 34.3 Est GFR (Non-Af Amer) 29.6 BUN/Creatinine Ratio 26.6 H (10-20) Glucose 344 H (70-99) mg/dl POC Glucose (70-99) Calcium 7.7 L (8.5-10.1) mg/dl Magnesium 1.6 L (1.8-2.4) mg/dl Troponin I 0.015 (0-0.045) ng/ml Beta-Hydroxybutyric Acd 1.26 (0.2-2.81) mg/dl Urine Color Urine Appearance (Clear) Urine pH (4.5-7.5) Ur Specific [place] (1.000-1.030) Urine Protein (Negative) Urine Glucose (UA) (Negative) Urine Ketones (Negative) Urine Blood (Negative) Urine Nitrite (Negative) Urine Bilirubin (Negative) Urine Urobilinogen (Negative) Ur Leukocyte Esterase (Negative) Urine WBC (Auto) (0-5) /hpf Urine RBC (Auto) (0-4) /hpf U Hyaline Cast (Auto) (0-5) /lpf U Epithel Cells (Auto) (0-5) /lpf Urine Bacteria (Auto) (Negative) Ur Renal Epithelial Cell Nasal Screen MRSA (PCR) (Negative) Blood Type Antibody Screen 12/16/18 12/16/18 12/16/18 Range/Units 01:02 02:04 08:40 WBC (4.8-10.8) K/uL RBC (4.2-5.4) M/uL Hgb (12.0-16.0) g/dL Hct (37-47) % MCV (80-100) fL MCH (25-34) pg MCHC (32-36) g/dL RDW Std Deviation (36.4-46.3) fL RDW Coeff of Sarah (11.5-14.5) % Plt Count (130-400) K/uL Immature Gran % (Auto) % Neut % (Auto) % Lymph % (Auto) % [place] % (Auto) % Eos % (Auto) % Baso % (Auto) % Immature Gran # (Auto) (0.00-0.02) K/uL Neut # (Auto) (1.4-6.5) K/uL Lymph # (Auto) (1.2-3.4) K/uL [place] # (Auto) (0.11-0.59) K/uL Eos # (Auto) (0-0.5) K/uL Baso # (Auto) (0-0.2) K/uL Polychromasia Anisocytosis PT (9.0-12.0) Seconds INR (0.9-1.1) APTT (21.0-31.0) Seconds PTT Ratio Sodium (136-145) mmol/L Potassium (3.5-5.1) mmol/L Chloride (98-107) mmol/L Carbon Dioxide (21-32) mmol/L Anion Gap (3-11) BUN (7-18) mg/dl Creatinine (0.6-1.2) mg/dl Est Cr Clr Drug Dosing ml/min Est GFR ( Amer) Est GFR (Non-Af Amer) BUN/Creatinine Ratio (10-20) Glucose (70-99) mg/dl POC Glucose (70-99) Calcium (8.5-10.1) mg/dl Magnesium (1.8-2.4) mg/dl Troponin I (0-0.045) ng/ml Beta-Hydroxybutyric Acd (0.2-2.81) mg/dl Urine Color Yellow Urine Appearance Clear (Clear) Urine pH 6.0 (4.5-7.5) Ur Specific Pione[place] 1.014 (1.000-1.030) Urine Protein 3+ H (Negative) Urine Glucose (UA) 2+ H (Negative) Urine Ketones Negative (Negative) Urine Blood Trace H (Negative) Urine Nitrite Negative (Negative) Urine Bilirubin Negative (Negative) Urine Urobilinogen Negative (Negative) Ur Leukocyte Esterase 1+ H (Negative) Urine WBC (Auto) 10-30 H (0-5) /hpf Urine RBC (Auto) 0-4 (0-4) /hpf U Hyaline Cast (Auto) 1-5 (0-5) /lpf U Epithel Cells (Auto) >30 H (0-5) /lpf Urine Bacteria (Auto) Negative (Negative) Ur Renal Epithelial Cell Not Reportable Nasal Screen MRSA (PCR) Negative (Negative) Blood Type A Positive Antibody Screen NEGATIVE 12/16/18 12/16/18 Range/Units 09:04 12:37 WBC (4.8-10.8) K/uL RBC (4.2-5.4) M/uL Hgb (12.0-16.0) g/dL Hct (37-47) % MCV (80-100) fL MCH (25-34) pg MCHC (32-36) g/dL RDW Std Deviation (36.4-46.3) fL RDW Coeff of Sarah (11.5-14.5) % Plt Count (130-400) K/uL Immature Gran % (Auto) % Neut % (Auto) % Lymph % (Auto) % [place] % (Auto) % Eos % (Auto) % Baso % (Auto) % Immature Gran # (Auto) (0.00-0.02) K/uL Neut # (Auto) (1.4-6.5) K/uL Lymph # (Auto) (1.2-3.4) K/uL [place] # (Auto) (0.11-0.59) K/uL Eos # (Auto) (0-0.5) K/uL Baso # (Auto) (0-0.2) K/uL Polychromasia Anisocytosis PT (9.0-12.0) Seconds INR (0.9-1.1) APTT (21.0-31.0) Seconds PTT Ratio Sodium (136-145) mmol/L Potassium (3.5-5.1) mmol/L Chloride (98-107) mmol/L Carbon Dioxide (21-32) mmol/L Anion Gap (3-11) BUN (7-18) mg/dl Creatinine (0.6-1.2) mg/dl Est Cr Clr Drug Dosing ml/min Est GFR ( Amer) Est GFR (Non-Af Amer) BUN/Creatinine Ratio (10-20) Glucose (70-99) mg/dl POC Glucose 260 H 274 H (70-99) Calcium (8.5-10.1) mg/dl Magnesium (1.8-2.4) mg/dl Troponin I (0-0.045) ng/ml Beta-Hydroxybutyric Acd (0.2-2.81) mg/dl Urine Color Urine Appearance (Clear) Urine pH (4.5-7.5) Ur Specific Pione[place] (1.000-1.030) Urine Protein (Negative) Urine Glucose (UA) (Negative) Urine Ketones (Negative) Urine Blood (Negative) Urine Nitrite (Negative) Urine Bilirubin (Negative) Urine Urobilinogen (Negative) Ur Leukocyte Esterase (Negative) Urine WBC (Auto) (0-5) /hpf Urine RBC (Auto) (0-4) /hpf U Hyaline Cast (Auto) (0-5) /lpf U Epithel Cells (Auto) (0-5) /lpf Urine Bacteria (Auto) (Negative) Ur Renal Epithelial Cell Nasal Screen MRSA (PCR) (Negative) Blood Type Antibody Screen Imaging Data Attestation: I personally reviewed and interpreted this imaging study as follows : My Impression: PELVIS/Left Hip Xray 3V Intertrochanteric fracture, no obvious pelvic fracture. Radiologist's Impression: Radiology results as stated below per my review and the radiologist's interpretation: CT HEAD: COMPARISON: 09/24/18 FINDINGS: No intracranial hemorrhage, abnormal intra- or extra-axial collections or parenchymal lesions are seen. There are mild involutional changes with prominence of the sulci, basal cisterns and ventricles. Scattered white matter hypoattenuations are present, likely from small vessel disease. The diaz-white differentiation is preserved. No evidence of mass effect, midline shift, or edema. The osseous structures are unremarkable. The visualized portions of the paranasal sinuses are clear. IMPRESSION: 1. No acute intracranial process. 2. Involutional changes with small vessel disease. Stable compared to prior study Radiologist: Roger Alas MD Study ready at 03:11 and initial results transmitted at 03:15 CT C SPINE: FINDINGS: No fracture or subluxations are noted. The vertebral body heights, disc spaces and alignment are preserved. No prevertebral soft tissue swelling. IMPRESSION: Normal CT scan of the cervical spine. Radiologist: Roger Alas MD Study ready at 03:10 and initial results transmitted at 03:13 ECG Data Attestation: I personally reviewed and interpreted this ECG as follows: Indication: other (Fall) Rate (beats per minute): 67 Rhythm: normal sinus Findings: + PAC and + T-wave inversion (Lateral leads) Comparison ECG Date: from (12/10/18) Change: the following changes noted (T wave inversions in lateral leads is new) Blood Pressure Blood Pressure Findings: Elevated blood pressure Blood Pressure Disposition: further management by hospitalist ALEJANDRO Murcia The patient is an 88 year old female who presents to the ED via EMS after falling off of her toilet just prior to arrival, per EMS. The patient has severe pain in her left hip and hematoma to the left side of her head. She was diagnosed with an intertrochanteric left hip fracture and her pain was controlled with IV analgesia. The patient was noted to be significantly hyperglycemic but had a normal BHA. She also has some noted renal insufficiency. [facility]. The CT scan of the brain performed here in the emergency department was interpreted by [facility] as negative. Our in-house radiologist read the CT at 7 AM and were concerned for a subdural hematoma. Those results were conveyed to the admitting service. Impression & Plan Closed intertrochanteric fracture of left hip, Acute hyperglycemia Discharge Plan Visit Data *Final* Discharge Date/Time: 12/16/18 06:17 Chief Complaint: Fall Other Complaint: Hip Pain ED Provider: Ana Lilia Miller Discharge Problem: Closed intertrochanteric fracture of left hip, Acute hyperglycemia Patient Disposition: Admitted As Inpatient Discharge Instructions Interventions: ED Discharge Assessment Last Done: 12/16/18 06:17 The scribe's documentation has been prepared under my direction and personally reviewed by me in its entirety. I confirm that the note above accurately reflects all work, treatment, procedures, and medical decision making performed by me.
[2018-12-16] MEDS ORDERED: METOPROLOL TARTRATE 1 MG/ML VIAL IV ONE (07:57)
[2018-12-16] MEDS: METOPROLOL TARTRATE 1 MG/ML VIAL IV SCH ×2 (08:52→12:48)
[2018-12-16] MEDS: INSULIN ASPART 100 UNITS/ML 3 ML PEN SC SCH ×2 (09:11→12:40)
--- NOTE | 2018-12-16 10:36 | Critical Care Consultation ---
Date of Consultation December 16, 2018 Assessment & Plan (1) Closed intertrochanteric fracture of left hip: Impression: 1. Subdural hematoma, left temporoparietal area. 2. Left hip fracture. 3. Hypertension. 4. History of recently treated UTI. Plan: 1. The patient should be transferred to a tertiary hospital where there is neurosurgery service. Our hospital does not have this kind of service. 2. Blood pressure controlled using hydralazine or labetalol. No need for a drip. Keep blood pressure systolic between 120-160. 3. Agree with restarting Rocephin to complete the course for treatment of UTI. 4. Patient is not in pain, did not require any pain control at this point. 5. Venodyne boots. 6. Oral intake. 7. Orthopedic consult for left hip fracture. 8. Discussed with the staff on rounds and details. Thank you, discussed with the family in details all their questions been answered. Time spent with the patient including family meeting that was 35 minutes. History of Present Illness Reason for Consultation: Fall with subdural hematoma. Left hip fracture. Requesting Physician: Dr. Myers. Attending Physician: Joselo Guadalupe MD History of Present Illness Dear Dr. Myers: Thank you for the kind referral of Mrs. Davis to critical care service. This is 88-year-old female with history of hypertension, has been maintained on Coreg, does not take significant number of medications and otherwise she is fairly healthy, she lives with her son at home, the patient sustained 2 episodes of falls in the past 4 days, most recently last night when she was going to the bathroom. The patient denies any dizziness pre-or post fall. She denies any near syncopal episode, no vertigo either. The patient denies any loss of consciousness. However she could not stand up and the son called the ambulance and the patient was brought to the ED. Workup noted for head CT which showed subdural hematoma at the left parietal area measuring approximately 6.9 mm. Left hip fracture. The rest of her survey was unremarkable. The patient denies any headache, no nausea or vomiting, no abdominal pain and no chest pain. Minimal hip pain according to her. She does not have any weakness or loss of sensation in the periphery. The rest of her review of system was unremarkable. Family history does not contribute to her current illness. The patient is non-smoker lifetime and she lives with her son. Allergies Allergy/AdvReac Type Severity Reaction Status Date / Time No Known Allergies Allergy Verified 12/16/18 00:46 Home Medications Home Medications Medication Instructions Recorded Confirmed Type allopurinol 300 mg PO DAILY 09/24/18 12/16/18 History vitamin B69-[id number] acid 1 tab PO DAILY 09/24/18 12/16/18 History carvedilol 12.5 mg PO BID 12/10/18 12/16/18 History magnesium oxide 400 mg PO DAILY 12/10/18 12/16/18 History cephalexin 250 mg PO BID 12/16/18 12/16/18 History cholecalciferol (vitamin D3) 1,000 unit PO DAILY 12/16/18 12/16/18 History [Vitamin D3] lisinopril 10 mg PO DAILY 12/16/18 12/16/18 History mirtazapine 7.5 mg PO HS 12/16/18 12/16/18 History Patient History Medical History Kidney stones Hypertension UTI (urinary tract infection) Family History Other Family history non-contributory Social History Current Living Situation: Family Current Living Situation Comment: lives w son Other Information That Helps Us Care for You: No Feels Safe at Home: Yes Safety Concerns: Feels Safe At This Time Smoking Status: Never smoker Hx Alcohol Use: No Hx Substance Use: No Beliefs That Will Affect Care: None Preferred Language: Yemeni Communication Ability: Effective Review of Systems Review of systems including 14 systems was unremarkable. Except for the above. Physical Exam 2 Vital Signs (Past 24 Hours): Last Vital Signs Temp 36.7 C 12/16/18 09:55 Pulse 64 12/16/18 09:55 Resp 18 12/16/18 09:55 BP 175/97 H 12/16/18 09:55 Pulse Ox 94 12/16/18 09:55 Physical Exam: Physical exam revealed slightly elevated blood pressure, with systolic blood pressure at 170. She does have a bruise on the left temporal area. Oral mucosa is moist. No JVD. S1-S2 regular rate and rhythm. Distant breath sounds bilaterally. Abdomen is benign. No edema in the periphery. Neurologically, her cranial nerves from 2-12 are intact. She has no focal deficit. Pupils are equal reacting to accommodation and light. She does not have any focality on her neuro exam including motor and sensory. Results & Data Laboratory Results Labs reviewed the patient is hemoconcentrated, white count are normal, platelets are acceptable. UA with slight positive sediment. Diagnostic Findings Head CT was reviewed personally which showed subdural hematoma, cervical spine did not show any trauma, there is a small right mastoid effusion. And a thyroid gland goiter. Imaging of the left hip showed left intertrochanteric hip fracture. _ (1) Closed intertrochanteric fracture of left hip Encounter type: initial encounter Fracture alignment: nondisplaced Fracture healing: Qualified Code(s): S72.145A - Nondisplaced intertrochanteric fracture of left femur, initial encounter for closed fracture
[2018-12-16] MEDS: MAGNESIUM SULFATE / D5W 1 GM/100 ML BAG IV SCH ×2 (10:37→11:18)
[2018-12-16] MEDS ORDERED: HydrALAZINE HCL 20 MG/ML VIAL ONE (10:47)
[2018-12-16] MEDS ORDERED: HydrALAZINE HCL 20 MG/ML VIAL IV STA (10:50)
[2018-12-16] MEDS ORDERED: cefTRIAXone SODIUM 1,000 MG in SODIUM CHLOR 0.9% AD-VAN 50 ML IV SCH (11:00)
[2018-12-16] MEDS ORDERED: PANTOprazole 40 MG in SYRINGE 0 ML IV SCH (11:00)
--- NOTE | 2018-12-16 11:52 | Discharge Summary ---
Date of Service December 16, 2018 Admission HPI Per Admitting Provider The patient is a 88 year old female who presents to the Emergency Room via EMS after falling off of the side of the toilet, per EMS. Per the patient, she fell while ambulating to the toilet. When she fell, she hit the left side of her head on the sink and also hit her left hip but she did not lose consciousness. She has left hip pain with movement, but she denies any neck, back or abdominal pain. Upon arrival the patient was incontinent with stool. The patient also reports not feeling well the past couple of days and she did fall earlier in the week. She also notes she has healing shingles on the medial aspect of her right thigh. X-ray performed in the ED suggesting a closed intertrochanteric fracture of the left femur, and she is referred for evaluation for admission. Principal Diagnosis subdural hematoma, L intertrochanteric fx Discharge Exam Constitutional WD/WN, vitals as above bruise on the left temporal area Eyes PERRL, conjunctivae normal, anicteric sclerae ENMT external ear and nose normal, oropharynx normal Respiratory normal respiratory effort, lungs clear to auscultation Cardiovascular RRR, no murmur, no edema Gastrointestinal (Abdomen) normal bowel sounds, soft, nontender, no hepatosplenomegaly Skin no rashes, warm and dry Neurologic CN's II-XI intact bilaterally No focal deficits. Motor/sensory intact throughout. Discharge Data Allergies Allergy/AdvReac Type Severity Reaction Status Date / Time No Known Allergies Allergy Verified 12/16/18 00:46 Consultations 12/16/18 03:19 ED Decision to Admit Stat 12/16/18 07:09 Consult Case Management - Discharge Planning Routine 12/16/18 09:14 Consult Handle Finisher Routine 12/16/18 10:33 Burn CD for patient Stat Ordered Studies 12/16/18 02:48 CT cervical spine wo con Urgent CT head/brain wo con Urgent Hospital Course (1) Closed intertrochanteric fracture of left hip: 88 y/o F with PMH significant only for HTN presented to [facility] ER via EMS after falling while ambulating to the toilet. When she fell, she hit the left side of her head on the sink and also hit her left hip. Denies LOC, neck, back or abd pain. Noted only left hip pain with movement. Upon arrival the patient was incontinent with stool. XR showed closed intertrochanteric fx of L femur. CT Head showed acute 7 mm left convexity subdural hematoma. CT C-spine showed small right mastoid effusion, but otherwise no fractures or subluxations. Labs unremarkable other than elevated glucose 344. The following is the medical management during pt's stay here. -In speaking with both rand butting machine operator and family, agreed that the patient should be transferred to a tertiary hospital where there is neurosurgery service for possible worsening of subdural hematoma, although unlikely. [facility] does not have neurological services. During stay here, pt was not in pain, and did not require any pain control other than initial 50 mcg IV Fentanyl in ER. At time of d/c, pt had normal neuro exam (CN 2-12 intact, no focal deficits, normal sensory/motor function). Dr. Davidson (trauma sx) has agreed to accept [place] [facility]. -Initial BP elevated in 180-190s, controlled using IV hydralazine 10 mg and 20 mg PO hydralazine. Goal blood pressure systolic between 120-160, at time of d/c 151/51. Home carvedilol and lisinopril held during stay. -IV Rocephin ongoing to complete the course for treatment of UTI. Of note, pt has healing shingles on the medial aspect of her right thigh. At time of d/c, pt had no other acute concerns or complaints. Total Time Total Time Spent Total Time Spent (In Minutes): 30 min Discharge Plan Discharge Items Patient Disposition: Transfer Acute Care Hospital Reason For Visit: LEFT HIP FRACTURE Discharge Diagnosis: subdural hematoma, L intertrochanteric fx Discharge Goals: Decrease discomfort, Improve function and Therapeutic intervention Activity: Per 'Additional Instructions' section Non-emergency contact: Primary Care Provider Call non-emergency contact if: you have any medication questions and your symptoms worsen Diet: Heart Healthy Addtl Provider Instructions: 88 y/o F with PMH significant only for HTN presented to [facility] ER via EMS after falling while ambulating to the toilet. When she fell, she hit the left side of her head on the sink and also hit her left hip. Denies LOC, neck, back or abd pain. Noted only left hip pain with movement. Upon arrival the patient was incontinent with stool. XR showed closed intertrochanteric fx of L femur. CT Head showed acute 7 mm left convexity subdural hematoma. CT C-spine showed small right mastoid effusion, but otherwise no fractures or subluxations. Labs unremarkable other than elevated glucose 344. The following is the medical management during pt's stay here. -In speaking with both rand butting machine operator and family, agreed that the patient should be transferred to a tertiary hospital where there is neurosurgery service for possible worsening of subdural hematoma, although unlikely. [facility] does not have neurological services. During stay here, pt was not in pain, and did not require any pain control other than initial 50 mcg IV Fentanyl in ER. At time of d/c, pt had normal neuro exam (CN 2-12 intact, no focal deficits, normal sensory/motor function). Dr. Davidson (trauma sx) has agreed to accept pt [place] [facility]. -Initial BP elevated in 180-190s, controlled using IV hydralazine 10 mg and 20 mg PO hydralazine. Goal blood pressure systolic between 120-160, at time of d/c 151/51. Home carvedilol and lisinopril held during stay. -IV Rocephin ongoing to complete the course for treatment of UTI. Of note, pt has healing shingles on the medial aspect of her right thigh. At time of d/c, pt had no other acute concerns or complaints. Prescriptions: Continue magnesium oxide 400 mg magnesium Tablet 400 mg PO DAILY RF: 0 allopurinol 300 mg tablet 300 mg PO DAILY RF: 0 vitamin B02-fkxpi acid 0.5-1 mg Tablet 1 tab PO DAILY RF: 0 cephalexin 250 mg Tablet 250 mg PO BID RF: 0 cholecalciferol (vitamin D3) [Vitamin D3] 1,000 unit Capsule 1,000 unit PO DAILY RF: 0 mirtazapine 7.5 mg Tablet 7.5 mg PO HS RF: 0 Discontinued carvedilol 12.5 mg tablet 12.5 mg PO BID RF: 0 lisinopril 10 mg Tablet 10 mg PO DAILY RF: 0 Stand-Alone Forms: [facility] Discharge Orders: Discharge Order (Routine); Ordered 12/16/18 Ordered By: Low Busch Admission Data Admit Date/Time: 12/16/18 04:54 Attending Provider: Joselo Guadalupe Admit Provider: Joselo Guadalupe Primary Care Provider: Divine Escobar. Other Providers: Joselo Guadalupe ; Naa An Service: Intensive Care Unit Other Interventions: Discharge Summary Assessment (RN) Last Done: 12/16/18 12:49 DC Date/Time DO NOT enter until pt leaves facility: 12/16/18 14:07 Supervising Physician Co-Signing Physician Notes I personally examined the patient and verified all bernstein points of history and exam, discussed case, and agree with decision making with Dr Busch. Hip pain. No significant neuro findings. Does want to go to [place] where neurosurgery backup is available. Vitals noted, in general she is only in distress whenever she moves. Breathing is unlabored no accessory muscle use good effort. Skin shows no rashes no pallor or icterus. She does have bruising on the side of her head. Hip fracture and subdural hematomatransfer to [place] to allow for high risk surgery to fix the hip sooner, as well as neurosurgery backup. Otherwise as above Resident Activity Tracking Resident Involvement: Resident Care Provided Care Provided: Adult Hospital Medicine
== END 2018-12-16 14:07 | disposition short-term general hospital (02) | DRG 964 ==
LOC: ED 00:21 → 2N 04:54 → 1E 07:40